=== PATIENT | female | born 1985 | race Caucasian/White ===

== ENCOUNTER 2024-02-15 12:06 | Emergency (ER) | payer OTHER, SELFPAY ==
[2024-02-15 12:28] VITALS: BP 119/76; PULSE 95; RESP 17; TEMP 36.8; O2SAT 99
[2024-02-15 13:42] LABS: Basophils % 0.6 %; Eosinophils # 0.2 10^3/uL (0.0-0.8); Eosinophils % 3.2 %; Hematocrit 42.1 % (36-47); Lymphocytes # 2.1 10^3/uL (0.8-4.8); Lymphocytes % 31.5 %; Mean Corpuscular HGB Conc 32.8 g/dL (30-55); Mean Corpuscular Volume 94.6 fl (85-98); Mean Platelet Volume 11.3 fL (7.4-10.4); Monocytes # 0.4 10^3/uL (0.2-0.9); Monocytes % 6.7 %; Neutrophils # 3.83 10^3/uL (1.8-7.7); Neutrophils % 57.8 %; Nucleated Red Blood Cells % 0 %; Platelet Count 182 10^3/cmm (157-399); Red Blood Count 4.45 10^6/uL (3.85-5.65); Red Cell Distribution Width 12.9 % (12.1-15.1); White Blood Count 6.61 10^3/uL (3.29-11.43)
--- NOTE | 2024-02-15 13:54 | ED_ITS ---
HPI - Neuro Symptoms/Deficit 2 General: Chief Complaint: Neuro Symptoms/Deficit Stated Complaint: numbness in limbs Time Seen by Provider: 02/15/24 13:24 Source: patient Mode of arrival: ambulatory Limitations: no limitations History of Present Illness: Patient is a 38-year-old female presents to ED today requesting an IV steroid infusion secondary to symptoms consistent with her MS flare. Patient states over the past several days she has had some numbness and tingling to her arms and legs. She states this is identical to previous MS flares. She reportedly contacted her neurologist's office, Dr. Leach who called her in an IV infusion of steroids over at the infusion center/oncology office. She reportedly went over there today and was told it was ordered by mistake in a PO form. They possibly recommended her to come to the emergency department. She states while in the waiting room of the emergency department the oncology office called and stated they misread the order and it was indeed ordered as an IV infusion and she could return over there to receive it. Patient understandably seems frustrated over the confusion. She states she is here in the emergency department now and just wants to get the infusion here. Onset (ago): day(s) History of same: Yes Severity: mild Quality: tingling Relieving factors: none Exacerbating factors: none Context: other (MS flare) Associated symptoms: Reports no associated symptoms; Deny chest pain, headache(s), malaise, nausea or vomiting Treatments Prior to Arrival: none Review of Systems 2 Const: Denies: fever(s), chills, body aches, fatigue or malaise ENMT: Denies: throat pain Card: Denies: chest pain, palpitations or lightheadedness Resp: Denies: dyspnea GI: Denies: nausea or vomiting Musc: Denies: neck pain, back pain, extremity pain, extremity swelling, joint pain or joint swelling Skin/Breast: Denies: rash Neuro: Reports: sensory changes; Denies: headache(s), weakness in extremities, lack of coordination, difficulty walking, frequent falls or dizziness PFSH ED 2 PFSH: Family History Father Heart attack Grandfather Cancer Social History Smoking and tobacco/nicotine status: never used tobacco/nicotine Alcohol intake: never Substance/Drug Use: never Physical Exam 2 Const: COMMON NORMALS: no acute distress, average body habitus, patient oriented x3, no limitations, healthy appearing, alert and well nourished G ENERAL APPEARANCE: cooperative ORIENTATION/CONSCIOUSNESS: Yes awake, Yes oriented to person, Yes oriented to place and Yes oriented to time Eye: COMMON NORMALS: Equal, round and reactive pupils present and EOMs intact bilaterally GENERAL EYE: appearance normal, both eyes and all related structures PUPIL: Yes Equal, round and reactive pupils present Resp: COMMON NORMALS: normal respiratory effort and clear to auscultation bilaterally AUSCULTATION: clear to auscultation bilaterally Cardio: COMMON NORMALS: regular rate and regular rhythm RATE: regular rate RHYTHM: regular rhythm Extremity: COMMON NORMALS: normal to inspection, full ROM and capillary refill normal GENERAL: Yes normal exam except as noted Neuro: JUNO COMA SCALE: document GCS findings [place] coma scale eye opening: Spontaneous [place] coma scale verbal response: Orientated Jun[place] coma scale motor response: Obey commands Juno coma scale total score: 15 COMMON NORMALS: patient oriented x3, CN's II-XII intact bilaterally, moves all extremities, no focal motor deficits and gait normal SENSORIUM/ORIENTATION: Y es alert, Yes oriented to person, Yes oriented to place and Yes oriented to time Skin: COMMON NORMALS: no rashes or lesions noted GENERAL SKIN EXAM: no rashes or lesions noted Course 2 Vital Signs: Vital signs: Vital Signs Temperature 98.2 F 02/15/24 12:28 Pulse Rate 95 02/15/24 12:28 Respiratory Rate 17 02/15/24 12:28 Blood Pressure 119/76 02/15/24 12:28 Pulse Oximetry 99 02/15/24 12:28 Oxygen Delivery Me thod Room Air 02/15/24 12:28 MDM - Neuro Symptoms/Deficit Medical Decision Making Patient's labs are unremarkable. She was given 1000 mg of methylprednisolone. She will be allowed discharge to follow up with her neurologist. Return precautions given. Lab Data 02/15/24 13:28 02/15/24 13:28 Laboratory Results WBC 6.61 10^3/uL (3.29-11.43) 02/15/24 13:28 RBC 4.45 10^6/uL (3.85-5.65) 02/15/24: Hgb 13.80 g/dL (11.27-16.99) 02/15/24: Hct 42.1 % (36-47) 02/15/24: MCV 94.6 fl (85-98) 02/15/24 13: MCH 31.0 pg (27-33) 02/15/24: MCHC 32.8 g/dL (30-55) 02/15/24: RDW 12.9 % (12.1-15.1) 02/15/24: Plt Count 182 10^3/cmm (157-399) 02/15/24: MPV 11.3 fL (7.4-10.4) H 02/15/24: Neut % (Auto) 57.8 % 02/15/24: Lymph % (Auto) 31.5 % 02/15/24: Pine % (Auto) 6.7 % 02/15/24: Eos % (Auto) 3.2 % 02/15/24: Baso % (Auto) 0.6 % 02/15/24: Neut # (Auto) 3.83 10^3/uL (1.8-7.7) 02/15/24 Lymph # (Auto) 2.1 10^3/uL (0.8-4.8) 02/15/24: Pine # (Auto) 0.4 10^3/uL (0.2-0.9) 02/15/24 Eos # (Auto) 0.2 10^3/uL (0.0-0.8) 02/15/24 Baso # (Auto) 0.0 10^3/uL (0.0-0.1) 02/15/24 Nucleated RBC % (auto) 0 % 02/15/24 Nucleated RBCs # 0.0 /100WBC 02/15/24: Sodium 136 mmol/L (136-145) 02/15/24: Potassium 3.9 mmol/L (3.5-5.1) 02/15/24: Chloride 105 mmol/L (98-107) 02/15/24 13:28 Carbon Dioxide 23 mmol/L (22-29) 02/15/24 13:28 Anion Gap 11.9 (5-19) 02/15/24 13:28 BUN 10 mg/dL (6-20) 02/15/24 13:28 Creatinine 0.7 mg/dL (0.5-0.9) 02/15/24 13:28 GFR Calculation 93.6 mL/min (90-130) 02/15/24 13:28 Glucose 77 mg/dL (65-115) 02/15/24 13:28 Calculated Osmolality 280 mOsm/kg (285-295) L 02/15/24 13:28 Calcium 8.7 mg/dL (8.5-10.5) 02/15/24 13:28 Total Bilirubin 0.3 mg/dL (0.15-1.2) 02/15/24 13:28 AST 12 U/L (0-32) 02/15/24 13:28 ALT 11 U/L (0-33) 02/15/24 13:28 Alkaline Phosphatase 66 U/L (35-105) 02/15/24 13:28 Total Protein 6.9 g/dL (6.6-8.7) 02/15/24 13:28 Albumin 4.2 g/dL (3.5-5.2) 02/15/24 13:28 Globulin 2.7 g/dL (1.3-4.6) 02/15/24 13:28 No radiology studies performed this visit Discharge Plan Discharge Patient Disposition: Home Clinical Impression: Multiple sclerosis Condition: Stable Prescriptions: No Action topiramate [Topamax] 100 mg tablet 100 mg PO ONCE 90 Days Qty: 90 3RF doxycycline hyclate 100 mg tablet 100 mg PO BID 10 Days Qty: 20 0RF dimethyl fumarate 240 mg capsule,delayed release(DR/EC) See Rx Instructions .ROUTE .COMPLEX Qty: 120 3RF Dose Instruction: TAKE ONE CAPSULE BY MOUTH TWICE DAILY Rx Instructions: TAKE ONE CAPSULE BY MOUTH TWICE DAILY Discharge Orders: Discharge ED (Routine); Ordered 02/15/24 Ordered By: Nat Norwood Patient Instructions: Multiple Sclerosis (DC) Coding Level of Care Code ED [employer] for Phyllis Aleman
[2024-02-15 14:03] LABS: Alanine Aminotransferase 11 U/L (0-33); Albumin Level 4.2 g/dL (3.5-5.2); Alkaline Phosphatase 66 U/L (35-105); Anion Gap 11.9 (5-19); Aspartate Amino Transferase 12 U/L (0-32); Blood Urea Nitrogen 10 mg/dL (6-20); Calcium 8.7 mg/dL (8.5-10.5); Carbon Dioxide 23 mmol/L (22-29); Chloride 105 mmol/L (98-107); Creatinine Clr Calc Pharmacy 107.2761; Globulin 2.7 g/dL (1.3-4.6); Glomerular Filtration Rate 93.6 mL/min (90-130); Glucose 77 mg/dL (65-115); Osmolality Calculated 280 mOsm/kg (285-295); Potassium 3.9 mmol/L (3.5-5.1); Sodium 136 mmol/L (136-145); Total Bilirubin 0.3 mg/dL (0.15-1.2); Total Protein 6.9 g/dL (6.6-8.7)
[2024-02-15] MEDS: methylPREDNISolone sod succ 1,000 MG in sodium chloride 0.9% 250 ML 258 MG IV (14:39)
== END 2024-02-15 15:50 | disposition home or self-care (01) ==
PROVIDERS: Emergency Medicine; Emergency Provider Physician Assistant
DX: G35 Multiple sclerosis (principal)
CPT/HCPCS: 36415; 80053; 85025; 96365; 99284; J2919; J7050

== ENCOUNTER 2024-02-24 14:30 | Oncology outpatient (recurring) (ONCR) | payer OTHER, SELFPAY ==
[2024-02-22 08:05] VITALS: BP 118/72; PULSE 86; RESP 16; TEMP 36.6; O2SAT 96
[2024-02-22] MEDS: methylPREDNISolone sod succ 1,000 MG in sodium chloride 0.9% 250 ML 258 MG IV (08:30)
[2024-02-22 09:35] VITALS: BP 107/70; PULSE 74; RESP 18; TEMP 36.3; O2SAT 99
[2024-02-23 08:25] VITALS: BP 105/67; PULSE 80; RESP 16; TEMP 37.1; O2SAT 98
[2024-02-23] MEDS: methylPREDNISolone sod succ 1,000 MG in sodium chloride 0.9% 250 ML 258 MG IV (09:05)
[2024-02-23 10:15] VITALS: BP 114/72; PULSE 77; RESP 16; TEMP 36.2; O2SAT 99
[2024-02-24 14:47] VITALS: BP 108/65; PULSE 91; RESP 16; TEMP 36.6; O2SAT 98
[2024-02-24] MEDS: methylPREDNISolone sod succ 1,000 MG in sodium chloride 0.9% 250 ML 258 MG IV (15:14)
[2024-02-24 16:20] VITALS: BP 104/78; PULSE 74; RESP 18; TEMP 36.6; O2SAT 98
== END 2024-03-04 23:59 | disposition home or self-care (01) ==
PROVIDERS: Visit Provider Specialist
DX: G35 Multiple sclerosis (principal); Z53.9 Procedure and treatment not carried out, unspecified reason
CPT/HCPCS: 96365; 96366; J2919; J7050

== ENCOUNTER 2024-03-15 10:24 | Outpatient (CLI) | payer OTHER, SELFPAY ==
--- NOTE | 2024-03-15 11:00 | MR_ITS ---
WS: [id number] MRI BRAIN WITH AND WITHOUT CONTRAST HISTORY: G35 - Multiple sclerosis COMPARISON: CT head 05/27/2008 TECHNIQUE: Multiplanar imaging performed through the brain with MultiHance 12 ml's IV. No acute infarcts are seen. Green-white matter differentiation is well preserved. There are a few RIGH T periventricular/callosal septal demyelinating plaques identified. The largest along the posterior R IGHT lateral ventricle measures 10 x 5 mm. None of these plaques enhance. No demyelination in the LE FT brain. There is no signal abnormality within the visualized upper cervical cord or the cerebellum. No susceptibility artifacts or prior lacunar infarcts. Ventricles and extra-axial spaces are normal. Clivus and pituitary gland are normal. Visualized posterior fossa and brainstem are also normal. Postcontrast images are negative for masses or vascular malformations. Dural venous sinuses are normal. Paranasal sinuses: Well aerated with no significant disease. Mastoid air cells: Normal. Calvarium and scalp: Normal. MR/MR head wo/w con [id number] IMPRESSION: 1. Mild pericallosal and subcortical demyelinating plaques identified in the R IGHT brain. The largest involves the posterior RIGHT corpus callosum measuring 10 x 5 mm. None of the demyelinating lesions enhance. 2. No prior infarcts. 3. No volume loss or atrophy. 4. Normal hippocampal formations.
[2024-03-15] MEDS: gadobenate dimeglumine 20 mL vial IV (11:37)
== END 2024-03-15 10:25 | disposition home or self-care (01) ==
LOC: RAD 10:25
PROVIDERS: Visit Provider Specialist
DX: G35 Multiple sclerosis (principal)
CPT/HCPCS: 70553; A9577

== ENCOUNTER 2024-03-25 07:57 | Emergency (ER) | payer OTHER, SELFPAY ==
[2024-03-25 08:12] VITALS: BP 107/75; PULSE 73; RESP 18; TEMP 36.5; O2SAT 100; BMI 22.2
[2024-03-25 08:33] LABS: Basophils % 0.4 %; Eosinophils # 0.1 10^3/uL (0.0-0.8); Eosinophils % 2.2 %; Hematocrit 43.1 % (36-47); Lymphocytes # 1.8 10^3/uL (0.8-4.8); Lymphocytes % 35.9 %; Mean Corpuscular HGB Conc 32.5 g/dL (30-55); Mean Corpuscular Volume 95.4 fl (85-98); Mean Platelet Volume 11.5 fL (7.4-10.4); Monocytes # 0.4 10^3/uL (0.2-0.9); Monocytes % 8.4 %; Neutrophils # 2.59 10^3/uL (1.8-7.7); Neutrophils % 52.9 %; Nucleated Red Blood Cells % 0 %; Platelet Count 181 10^3/cmm (157-399); Red Blood Count 4.52 10^6/uL (3.85-5.65); Red Cell Distribution Width 12.6 % (12.1-15.1)
[2024-03-25 08:47] VITALS: BP 107/75; PULSE 77; RESP 18; O2SAT 100
[2024-03-25] MEDS: sodium chloride 0.9% 1,000 ML 999 ML IV (08:51)
[2024-03-25] MEDS: ondansetron 2 mg/ML SDV 2 mL 4 MG IVP (08:51)
[2024-03-25 08:52] LABS: HCG, Serum Qual Negative (Negative)
[2024-03-25 08:58] LABS: Alanine Aminotransferase 12 U/L (0-33); Albumin Level 4.4 g/dL (3.5-5.2); Alkaline Phosphatase 72 U/L (35-105); Anion Gap 14.7 (5-19); Aspartate Amino Transferase 13 U/L (0-32); Blood Urea Nitrogen 11 mg/dL (6-20); Calcium 9.2 mg/dL (8.5-10.5); Carbon Dioxide 23 mmol/L (22-29); Chloride 107 mmol/L (98-107); Creatinine Clr Calc Pharmacy 107.9002; Globulin 2.8 g/dL (1.3-4.6); Glomerular Filtration Rate 93.6 mL/min (90-130); Glucose 92 mg/dL (65-115); Osmolality Calculated 291 mOsm/kg (285-295); Potassium 3.7 mmol/L (3.5-5.1); Sodium 141 mmol/L (136-145); Total Bilirubin 0.4 mg/dL (0.15-1.2); Total Protein 7.2 g/dL (6.6-8.7)
[2024-03-25 09:02] VITALS: BP 105/71; BP 106/58; BP 109/69; PULSE 60; PULSE 63; PULSE 69
--- NOTE | 2024-03-25 09:37 | ED_ITS ---
HPI - Dizziness 2 General: Chief Complaint: Dizziness Stated Complaint: dizzy, nausea Time Seen by Provider: 03/25/24 07:59 Source: patient Mode of arrival: ambulatory History of Present Illness: HPI Narrative: 38-year-old female who presents to the mergency room complaining of dizziness lightheadedness near syncopal episode. 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 She is feeling a little better now couple weeks ago she finished a course of high-dose steroids to treat a relapse of her multiple sclerosis. Patient denies any other significant medical problems. No chest pain no palpitations or rapid heart rates. No abdominal pain no shortness of breath no dysuria urgency frequency. She did have some nausea no vomiting no diarrhea. Patient states after she sat down it took about 2 or 3 red for symptoms to resolve. She is feeling better now. MD elicited complaint: dizziness and near syncope Onset (ago): minute(s) Severity: moderate Exacerbating factors: nothing Relieving factors: nothing Associated symptoms: Reports no associated symptoms; Denies change in hearing, chest pain, chills, cough, diaphoresis, ear discharge, ear pressure, fevers/chills, headache(s), malaise, nausea, nasal congestion, palpitations, rash, short of breath, syncope, tinnitus, vomiting or weakness Associated neuro symptoms: Reports no associated symptoms Review of Systems 2 Const: Denies: chills, malaise or diaphoresis ENMT: Denies: ear discharge, change in hearing, tinnitus or nasal congestion Card: Denies: chest pain, palpitations or syncope Resp: Denies: dyspnea GI: Denies: nausea or vomiting : Denies: dysuria, urinary frequency or urinary urgency Musc: Denies: neck pain or back pain Skin/Breast: Denies: rash Neuro: Denies: headache(s) PFSH ED 2 PFSH: Family History Father Heart attack Grandfather Cancer Social History Smoking and tobacco/nicotine status: current every day tobacco/nicotine user Alcohol intake: never Substance/Drug Use: never Physical Exam 2 Const: COMMON NORMALS: no acute distress GENERAL APPEARANCE: cooperative and comfortable ORIENTATION/CONSCIOUSNESS: Yes awake, Yes oriented to person, Yes oriented to place and Yes oriented to time HENMT: COMMON NORMALS: normocephalic, atraumatic and hearing grossly normal bilaterally HEAD & SCALP: normocephalic and atraumatic Resp: COMMON NORMALS: normal respiratory effort, No retractions, No use of accessory muscles and clear to auscultation bilaterally AUSCULTATION: clear to auscultation bilaterally Cardio: COMMON NORMALS: regular rate, regular rhythm and No murmurs present (Cardio) RATE: regular rate RHYTHM: regular rhythm GI: COMMON NORMALS: Soft to palpation and No hepatosplenomegaly present A USCULTATION: Yes normoactive bowel sounds PALPATION: Yes Soft to palpation, No Tenderness to palpation present (GI), No Guarding due to palpation present (GI) and Yes No hepatosplenomegaly present Extremity: COMMON NORMALS: normal to inspection, capillary refill normal, no clubbing, cyanosis or edema, no calf tenderness and no pedal edema Neuro: SENSORIUM/ORIENTATION: Yes oriented to person, Yes oriented to place and Yes oriented to time Skin: COMMON NORMALS: no rashes or lesions noted GENERAL SKIN EXAM: no rashes or lesions noted Course 2 Vital Signs: Vital signs: Vital Signs Temperature 97.7 F 03/25/24 08:12 Pulse Rate 63 03/25/24 10:00 Respiratory Rate 16 03/25/24 10:00 Blood Pressure 111/87 03/25/24 10:00 Pulse Oximetry 100 03/25/24 10:00 Oxygen Delivery Me thod Room Air 03/25/24 10:00 MDM - Dizziness Medical Decision Making Patient appears to have an episode of postural hypotension. Ortho is now more fine she is feeling much better. Her cortisol level did come back slightly elevated although I do not think it is enough that it was probably a cause of these episodes. The rest of her lab work was unremarkable. May be related to her underlying history of MS. I do not think she is having an MS flare now I did discuss Dr. Leach will have her follow-up with Dr. Leach. She does not have a primary care doctor will put a request in for her to establish with a PCP. Additionally she is going to get an outpatient vitamin D level to be sent to Dr. Leach Medical Records I reviewed the patient's medical records. Lab Data I reviewed the patient's lab results. 03/25/24 08:21 03/25/24 08:21 Laboratory Results WBC 4.90 10^3/uL (3.29-11.43) 03/25/24 08:21 RBC 4.52 10^6/uL (3.85-5.65) 03/25/24 08:21 Hgb 14.00 g/dL (11.27-16.99) 03/25/24 08:21 Hct 43.1 % (36-47) 03/25/24 08:21 MCV 95.4 fl (85-98) 03/25/24 08:21 MCH 31.0 pg (27-33) 03/25/24 08:21 MCHC 32.5 g/dL (30-55) 03/25/24 08:21 RDW 12.6 % (12.1-15.1) 03/25/24 08:21 Plt Count 181 10^3/cmm (157-399) 03/25/24 08:21 MPV 11.5 fL (7.4-10.4) H 03/25/24 08:21 Neut % (Auto) 52.9 % 03/25/24 08:21 Lymph % (Auto) 35.9 % 03/25/24 08:21 [place] % (Auto) 8.4 % 03/25/24 08:21 Eos % (Auto) 2.2 % 03/25/24 08:21 Baso % (Auto) 0.4 % 03/25/24 08:21 Neut # (Auto) 2.59 10^3/uL (1.8-7.7) 03/25/24 08:21 Lymph # (Auto) 1.8 10^3/uL (0.8-4.8) 03/25/24 08:21 [place] # (Auto) 0.4 10^3/uL (0.2-0.9) 03/25/24 08:21 Eos # (Auto) 0.1 10^3/uL (0.0-0.8) 03/25/24 08:21 Baso # (Auto) 0.0 10^3/uL (0.0-0.1) 03/25/24 08:21 Nucleated RBC % (auto) 0 % 03/25/24 08:21 Nucleated RBCs # 0.0 /100WBC 03/25/24 08:21 Sodium 141 mmol/L (136-145) 03/25/24 08:21 Potassium 3.7 mmol/L (3.5-5.1) 03/25/24 08:21 Chloride 107 mmol/L (98-107) 03/25/24 08:21 Carbon Dioxide 23 mmol/L (22-29) 03/25/24 08:21 Anion Gap 14.7 (5-19) 03/25/24 08:21 BUN 11 mg/dL (6-20) 03/25/24 08:21 Creatinine 0.7 mg/dL (0.5-0.9) 03/25/24 08:21 GFR Calculation 93.6 mL/min (90-130) 03/25/24 08:21 Glucose 92 mg/dL (65-115) 03/25/24 08:21 Calculated Osmolality 291 mOsm/kg (285-295) 03/25/24 08:21 Calcium 9.2 mg/dL (8.5-10.5) 03/25/24 08:21 Total Bilirubin 0.4 mg/dL (0.15-1.2) 03/25/24 08:21 AST 13 U/L (0-32) 03/25/24 08:21 ALT 12 U/L (0-33) 03/25/24 08:21 Alkaline Phosphatase 72 U/L (35-105) 03/25/24 08:21 Total Protein 7.2 g/dL (6.6-8.7) 03/25/24 08:21 Albumin 4.4 g/dL (3.5-5.2) 03/25/24 08:21 Globulin 2.8 g/dL (1.3-4.6) 03/25/24 08:21 HCG, Qual Negative (Negative) 03/25/24 08:21 Random Cortisol 20.50 ug/dL (2.47-19.5) H 03/25/24 08:21 Urine Color Yellow (Yellow) 03/25/24 09:10 Urine Appearance Slightly cloudy (CLEAR) 03/25/24 09:10 Urine pH 6 (5-7) 03/25/24 09:10 Ur Specific [place] 1.020 (1.005-1.030) 03/25/24 09:10 Urine Protein Neg (Negative) 03/25/24 09:10 Urine Glucose (UA) Norm (Normal) 03/25/24 09:10 Urine Ketones Negative (Negative) 03/25/24 09:10 Urine Blood Neg (Negative) 03/25/24 09:10 Urine Nitrate Negative (Negative) 03/25/24 09:10 Urine Bilirubin Neg (Negative) 03/25/24 09:10 Urine Urobilinogen Norm mg/dL (Negative) 03/25/24 09:10 Ur Leukocyte Esterase Negative (Negative) 03/25/24 09:10 Urine RBC None /hpf (0-2) 03/25/24 09:10 Urine WBC Rare /hpf (0-5) 03/25/24 09:10 Ur Squamous Epith Cells 0-4 /hpf (0-5) H 03/25/24 09:10 Ur Transition Epith Cell 0-4 /hpf 03/25/24 09:10 Amorphous Sediment Trace /hpf 03/25/24 09:10 Urine Bacteria Trace /hpf (NONE) 03/25/24 09:10 Hyaline Casts 0-4 /lpf H 03/25/24 09:10 Urine Mucus 1+ /hpf 03/25/24 09:10 No radiology studies performed this visit Discharge Plan Discharge Patient Disposition: Home Clinical Impression: Orthostasis Condition: Stable Prescriptions: No Action Topamax 100 mg tablet 100 mg PO DAILY dimethyl fumarate 240 mg capsule,delayed release(DR/EC) 240 mg PO BID Discharge Orders: Discharge ED (Routine); Ordered 03/25/24 Ordered By: Abelino Zhang Discharge Diet: Usual diet Discharge Activity: Increase activity as tolerated Patient Instructions: Opioid Safety, Pain Management Activity Restrictions/Additional Instructions: Thank you for choosing [facility] for your healthcare needs today. It is very important that you follow up as instructed or that you return to the Emergency Department should you have concerns or if your condition changes or worsens in any way. You were seen today after a near syncopal episode. Suspect this was caused by a drop in your blood pressure. Your laboratory test did not show significant abnormality. Cortisol level was still pending distal be forwarded to Dr. Leach if abnormal. Dr. Leach ordered an outpatient vitamin D level you can stop by the lab at your convenience to have this drawn. Case management will help you get set up with a primary care physician. Continue all your current medications as previously prescribed. grain commodity manager will also set you up for a 24-hour Holter monitor. Stand Alone Forms: Work/School Release Coding Level of Care Code ED [employer] for Phyllis Aleman
[2024-03-25 10:00] VITALS: BP 111/87; PULSE 63; RESP 16; O2SAT 100
[2024-03-25 10:11] LABS: Add Urine Microscopic? YES; Bilirubin Urine Neg (Negative); Blood Urine Neg (Negative); Glucose Urine UA Norm (Normal); Ketones Urine Negative (Negative); Leukocyte Esterase Urine Negative (Negative); Nitrate Urine Negative (Negative); Protein Urine Neg (Negative); Urine Appearance Slightly Cloudy (CLEAR); Urine Color Yellow (Yellow); Urobilinogen Urine Norm (Negative); pH Urine 6 (5-7)
[2024-03-25 10:31] LABS: Amorphous Sediment Urine TRACE /hpf; Bacteria Urine TRACE /hpf; Mucus Urine 1+ /hpf; Squamous Epithelial Cell Urine 0-4 /hpf (0-5); Transitional Epi Cells Urine 0-4 /hpf; WBC Urine RARE /hpf (0-5)
[2024-03-25 10:32] LABS: Add Urine Culture? No; Hyaline Casts Urine 0-4 /lpf
--- NOTE | 2024-03-25 11:13 | DCPLANNER ---
messaged heart/lung for holter monitor
--- NOTE | 2024-03-25 15:37 | DCPLANNER ---
jose smith front office for er f/u
== END 2024-03-25 11:31 | disposition home or self-care (01) ==
PROVIDERS: Emergency Provider Family Medicine
DX: I95.1 Orthostatic hypotension (principal); Z72.0 Tobacco use
CPT/HCPCS: 36415; 80053; 81001; 82533; 84703; 85025; 96374; 99284; J2405; J7030

== ENCOUNTER → 2025-01-31 09:05 | Outpatient (BNVA) | payer OTHER, SELFPAY | PROVIDERS: Visit Provider Specialist | DX: R53.83 Other fatigue (principal); G47.10 Hypersomnia, unspecified | CPT/HCPCS: 36415; 80053; 82652; 84439; 84443; 85025; 85651 ==

== ENCOUNTER 2025-02-02 08:39 | Emergency (ER) | payer OTHER, SELFPAY ==
[2025-02-02 09:14] LABS: Basophils % 0.6 %; Eosinophils # 0.1 10^3/uL (0.0-0.8); Eosinophils % 2.7 %; Hematocrit 41.4 % (36-47); Lymphocytes # 1.6 10^3/uL (0.8-4.8); Lymphocytes % 32.1 %; Mean Corpuscular HGB Conc 32.1 g/dL (30-55); Mean Corpuscular Hemoglobin 30.6 pg (27-33); Mean Corpuscular Volume 95.2 fl (85-98); Mean Platelet Volume 11.3 fL (7.4-10.4); Monocytes # 0.4 10^3/uL (0.2-0.9); Monocytes % 8.7 %; Neutrophils % 55.9 %; Nucleated Red Blood Cells % 0 %; Platelet Count 171 10^3/cmm (157-399); Red Blood Count 4.35 10^6/uL (3.85-5.65); White Blood Count 4.83 10^3/uL (3.29-11.43)
[2025-02-02 09:24] VITALS: BP 106/65; PULSE 69; RESP 18; TEMP 36.4; O2SAT 100; BMI 21.6
[2025-02-02 09:31] LABS: Alanine Aminotransferase 12 U/L (0-33); Albumin Level 4.4 g/dL (3.5-5.2); Alkaline Phosphatase 70 U/L (35-105); Anion Gap 13.4 (5-19); Aspartate Amino Transferase 16 U/L (0-32); Blood Urea Nitrogen 13 mg/dL (6-20); Calcium 8.9 mg/dL (8.5-10.5); Carbon Dioxide 25 mmol/L (22-29); Chloride 104 mmol/L (98-107); Creatinine Clr Calc Pharmacy 82.1383; Globulin 2.8 g/dL (1.3-4.6); Glomerular Filtration Rate 69.7 mL/min (90-130); Glucose 94 mg/dL (65-115); Osmolality Calculated 286 mOsm/kg (285-295); Potassium 4.4 mmol/L (3.5-5.1); Sodium 138 mmol/L (136-145); Total Bilirubin 0.3 mg/dL (0.15-1.2); Total Protein 7.2 g/dL (6.6-8.7)
[2025-02-02] MEDS: sodium chloride 0.9% 1,000 ML 999 ML IV ×2 (09:45→10:29)
--- NOTE | 2025-02-02 09:48 | ED_ITS ---
HPI - Dizziness 2 General: Chief Complaint: Dizziness Stated Complaint: dizzy, light headed, hot all over Time Seen by Provider: 02/02/25 08:43 History of Present Illness: HPI Narrative: 39-year-old female with a history of MS states she was at work she had standing for time began to get lightheaded dizzy she went to walk away had difficult time walking but is very unsteady on her feet she never completely lost consciousness. Her coworkers insisted that she be seen in the emergency room. Patient does have a history of MS she is on dimethyl fumarate. No recent changes in her medications Associated symptoms: Denies chest pain or chills Related Data Home Medications ?Medication ?Instructions ?Recorded ?Confirmed acetaminophen 325 mg tablet 650 mg PO QID PRN Headache 02/02/25 02/02/25 (Tylenol) topiramate 200 mg tablet 20 mg PO DAILY 02/02/2510/29 Previous Rx's ?Medication ?Instructions ?Recorded dimethyl fumarate 240 mg 240 mg PO BID #180 caps 07/06 06/28 capsule,delayed release Allergies Allergy/AdvReac Type Severity Reaction Status Date / Time amoxicillin Allergy Intermediate nausea Verified 01/31/25 08:13 Review of Systems 2 Const: Denies: fever(s) or chills Card: Denies: chest pain Resp: Denies: dyspnea GI: Denies: abdominal pain : Denies: dysuria, urinary frequency or urinary urgency Musc: Denies: neck pain or back pain Skin/Breast: Denies: rash PFSH ED 2 PFSH: Family History Father Heart attack Grandfather Cancer Social History Smoking and tobacco/nicotine status: current every day tobacco/nicotine user Alcohol intake: never Substance/Drug Use: never Physical Exam 2 Const: GENERAL APPEARANCE: cooperative ORIENTATION/CONSCIOUSNESS: Yes awake, Yes oriented to person, Yes oriented to place and Yes oriented to time HENMT: COMMON NORMALS: normocephalic, atraumatic and hearing grossly normal bilaterally HEAD & SCALP: normocephalic and atraumatic Resp: COMMON NORMALS: normal respiratory effort, No retractions, No use of accessory muscles and clear to auscultation bilaterally AUSCULTATION: clear to auscultation bilaterally Cardio: COMMON NORMALS: regular rate, regular rhythm and No murmurs present (Cardio) RATE: regular rate RHYTHM: regular rhythm GI: COMMON NORMALS: Soft to palpation and No hepatosplenomegaly present A USCULTATION: Yes normoactive bowel sounds PALPATION: Yes Soft to palpation, No Tenderness to palpation present (GI), No Guarding due to palpation present (GI) and Yes No hepatosplenomegaly present Extremity: COMMON NORMALS: normal to inspection, capillary refill normal, no clubbing, cyanosis or edema, no calf tenderness and no pedal edema Neuro: SENSORIUM/ORIENTATION: Yes oriented to person, Yes oriented to place and Yes oriented to time Skin: COMMON NORMALS: no rashes or lesions noted GENERAL SKIN EXAM: no rashes or lesions noted Course 2 Vital Signs: Vital signs: Vital Signs Temperature 97.6 F 02/02/25 09:24 Pulse Rate 91 02/02/25 11:32 Respiratory Rate 18 02/02/25 09:24 Blood Pressure 97/59 02/02/25 11:32 Pulse Oximetry 95 02/02/25 11:32 Oxygen Delivery Me thod Room Air 02/02/25 11:32 MDM - Dizziness Medical Decision Making Patient feeling much better after IV fluids asymptomatic with standing with ambulation reviewed with her neurologist they recommend no changes at this time suspect this is orthostatic hypotension MS could contribute some to it. Follow- up with primary care doctor as needed note given for work Medical Records I reviewed the patient's medical records. Lab Data I reviewed the patient's lab results. 02/02/25 09:06 02/02/25 09:06 Laboratory Results WBC 4.83 10^3/uL (3.29-11.43) 02/02/25 09:06 RBC 4.35 10^6/uL (3.85-5.65) 02/02/25 09:06 Hgb 13.30 g/dL (11.27-16.99) 02/02/25 09:06 Hct 41.4 % (36-47) 02/02/25 09:06 MCV 95.2 fl (85-98) 02/02/25 09:06 MCH 30.6 pg (27-33) 02/02/25 09:06 MCHC 32.1 g/dL (30-55) 02/02/25 09:06 RDW 13.0 % (12.1-15.1) 02/02/25 09:06 Plt Count 171 10^3/cmm (157-399) 02/02/25 09:06 MPV 11.3 fL (7.4-10.4) H 02/02/25 09:06 Neut % (Auto) 55.9 % 02/02/25 09:06 Lymph % (Auto) 32.1 % 02/02/25 09:06 [place] % (Auto) 8.7 % 02/02/25 09:06 Eos % (Auto) 2.7 % 02/02/25 09:06 Baso % (Auto) 0.6 % 02/02/25 09:06 Neut # (Auto) 2.70 10^3/uL (1.8-7.7) 02/02/25 09:06 Lymph # (Auto) 1.6 10^3/uL (0.8-4.8) 02/02/25 09:06 [place] # (Auto) 0.4 10^3/uL (0.2-0.9) 02/02/25 09:06 Eos # (Auto) 0.1 10^3/uL (0.0-0.8) 02/02/25 09:06 Baso # (Auto) 0.0 10^3/uL (0.0-0.1) 02/02/25 09:06 Nucleated RBC % (auto) 0 % 02/02/25 09:06 Nucleated RBCs # 0.0 /100WBC 02/02/25 09:06 Sodium 138 mmol/L (136-145) 02/02/25 09:06 Potassium 4.4 mmol/L (3.5-5.1) 02/02/25 09:06 Chloride 104 mmol/L (98-107) 02/02/25 09:06 Carbon Dioxide 25 mmol/L (22-29) 02/02/25 09:06 Anion Gap 13.4 (5-19) 02/02/25 09:06 BUN 13 mg/dL (6-20) 02/02/25 09:06 Creatinine 0.9 mg/dL (0.5-0.9) 02/02/25 09:06 GFR Calculation 69.7 mL/min (90-130) L 02/02/25 09:06 Glucose 94 mg/dL (65-115) 02/02/25 09:06 Calculated Osmolality 286 mOsm/kg (285-295) 02/02/25 09:06 Calcium 8.9 mg/dL (8.5-10.5) 02/02/25 09:06 Total Bilirubin 0.3 mg/dL (0.15-1.2) 02/02/25 09:06 AST 16 U/L (0-32) 02/02/25 09:06 ALT 12 U/L (0-33) 02/02/25 09:06 Alkaline Phosphatase 70 U/L (35-105) 02/02/25 09:06 Total Protein 7.2 g/dL (6.6-8.7) 02/02/25 09:06 Albumin 4.4 g/dL (3.5-5.2) 02/02/25 09:06 Globulin 2.8 g/dL (1.3-4.6) 02/02/25 09:06 Urine Color Yellow (Yellow) 02/02/25 11:31 Urine Appearance Clear (CLEAR) 02/02/25 11:31 Urine pH 6.0 (5-7) 02/02/25 11:31 Ur Specific [place] 1.009 (1.005-1.030) 02/02/25 11:31 Urine Protein Negative (Negative) 02/02/25 11:31 Urine Glucose (UA) Negative (Normal) 02/02/25 11:31 Urine Ketones Trace (Negative) 02/02/25 11:31 Urine Blood Negative (Negative) 02/02/25 11:31 Urine Nitrate Negative (Negative) 02/02/25 11:31 Urine Bilirubin Negative (Negative) 02/02/25 11:31 Urine Urobilinogen 0.2 mg/dL (Negative) 02/02/25 11:31 Ur Leukocyte Esterase Negative (Negative) 02/02/25 11:31 Urine RBC 3-5 /hpf (0-2) 02/02/25 11:31 Urine WBC 0-5 /hpf (0-5) 02/02/25 11:31 Ur Squamous Epith Cells 6-10 /hpf (0-5) 02/02/25 11:31 Amorphous Sediment Not Reportable 02/02/25 11:31 Urine Bacteria Trace /hpf (NONE) 02/02/25 11:31 Hyaline Casts 0-4 /lpf H 02/02/25 11:31 All radiology interpretation(s) finalized by discharge Discharge Plan Discharge Patient Disposition: Home Clinical Impression: Orthostatic hypotension, Multiple sclerosis Condition: Stable Prescriptions: No Action dimethyl fumarate 240 mg capsule,delayed release(DR/EC) 240 mg PO BID Qty: 180 3RF topiramate 200 mg tablet 20 mg PO DAILY acetaminophen [Tylenol] 325 mg Tablet 650 mg PO QID PRN (Reason: Headache) Discharge Orders: Discharge ED (Routine); Ordered 02/02/25 Ordered By: Abelion Zhang Patient Instructions: Opioid Safety, Pain Management Activity Restrictions/Additional Instructions: Thank you for choosing [facility] for your healthcare needs today. It is very important that you follow up as instructed or that you return to the Emergency Department should you have concerns or if your condition changes or worsens in any way. You were seen in the emergency room after a near syncopal episode. This likely caused your orthostasis. This is when your blood pressure transiently drops after standing for long period of time. You are given IV fluids repeat pressures did not show significant drop and you are able to ambulate well. Recommend you minimize exertional activities for the next few days and recheck if not improving Stand Alone Forms: Work/School Release Print Language: Singaporean Coding Level of Care Code ED Supervisor Curing Room for Phyllis Aleman
[2025-02-02 11:30] VITALS: BP 93/54; BP 94/54; BP 97/59; PULSE 91; PULSE 96; PULSE 99
[2025-02-02 11:32] VITALS: BP 97/59; PULSE 91; O2SAT 95
[2025-02-02 11:54] LABS: Bilirubin Urine Negative (Negative); Blood Urine Negative (Negative); Glucose Urine UA Negative (Normal); Ketones Urine Trace (Negative); Leukocyte Esterase Urine Negative (Negative); Nitrate Urine Negative (Negative); Protein Urine Negative (Negative); Specific Gravity, Urine 1.009 (1.005-1.030); Urine Appearance Clear (CLEAR); Urine Color Yellow (Yellow); Urobilinogen Urine 0.2 mg/dL (Negative)
[2025-02-02 11:59] LABS: Add Urine Microscopic? YES; Bacteria Urine Trace /hpf; Hyaline Casts Urine 0-4 /lpf; WBC Urine 0-5 /hpf (0-5)
[2025-02-02 12:04] LABS: Add Urine Culture? No
== END 2025-02-02 11:50 | disposition home or self-care (01) ==
PROVIDERS: Emergency Provider Family Medicine
DX: I95.1 Orthostatic hypotension (principal); G35 Multiple sclerosis; Z72.0 Tobacco use
CPT/HCPCS: 36415; 80053; 81001; 85025; 96360; 96361; 99284; J7030